=== PATIENT | male | born 1940 | race Caucasian/White ===

== ENCOUNTER 2020-03-22 15:02 | Emergency (ER) | payer MEDICARE ==
[~2020-03-22] VITALS: Ht 177.8 cm; Wt 90.9 kg
[2020-03-22] MEDS ORDERED: TAMSULOSIN HCL0.4 MG PO (15:31)
[2020-03-22] MEDS ORDERED: ASPIRIN325 MG PO (15:31)
[2020-03-22] MEDS ORDERED: METFORMIN HCL1000 MG PO (15:31)
[2020-03-22] MEDS ORDERED: SIMVASTATIN10 MG PO (15:32)
[2020-03-22 15:48] LABS: HEMATOCRIT 38.4 % (39.0-50.0); HEMOGLOBIN 13.1 g/dl (14.0-18.0); IMMATURE GRANULOCYTES 0.2 % (0.0-5.0); MEAN CELL VOLUME 88.1 fL CALC (80.0-100.0); MEAN CORPUSCULAR HGB CONC 34.1 g/dL CAL (32.0-36.0); NEUT# 2.26 thou/uL (1.82-7.42); RED BLOOD COUNT 4.36 mill/uL (4.70-6.10); RED CELL DISTRI WIDTH 12.3 % (11.5-15.5)
[2020-03-22 16:00] LABS: ALBUMIN 4.2 g/dL (3.2-5.0); ALKALINE PHOSPHATASE 71 u/l (38-126); ANION GAP 13 (6-22 (CALC)); BILIRUBIN, TOTAL 0.7 mg/dL (0.0-1.4); BUN 18 mg/dL (8-23); BUN/CREATININE RATIO 18 (12-20 (CALC)); CARBON DIOXIDE 25 mmol/l (22-30); CHLORIDE 97 mmol/l (95-108); GFR > 60 ML/MIN (>=60 (CALC)); GFR FOR AFR.AMER. > 60 ML/MIN (>=60 (CALC)); SGOT/AST 55 u/l (19-48); SODIUM 131 mmol/l (137-146); TOTAL PROTEIN 7.1 g/dL (6.3-8.2)
[2020-03-22 16:11] LABS: URINE BILIRUBIN - DIPSTICK NEGATIVE (NEGATIVE); URINE BLOOD DIPSTICK NEGATIVE (NEGATIVE); URINE COLOR YELLOW; URINE GLUCOSE - DIPSTICK NEGATIVE (NEGATIVE); URINE KETONE NEGATIVE (NEGATIVE); URINE LEUK ESTERASE NEGATIVE (NEGATIVE); URINE NITRITE - DIPSTICK NEGATIVE (Negative); URINE PH 5.5 (4.5-8.0); URINE PROTEIN - DIPSTICK NEGATIVE (NEG-TRACE); URINE SPECIFIC GRAVITY >=1.030; URINE UROBILINOGEN - DIPSTICK 0.2 E.U./dL (0.2)
[2020-03-22 16:12] LABS: MYOGLOBIN 74 ng/mL (0 - 121)
[2020-03-22] MEDS ORDERED: ZITHROMAX250 MG PO (16:44)
[2020-03-22 17:30] VITALS: BP 120/70
== END 2020-03-22 18:12 | disposition home or self-care (01) ==
LOC: ED 15:02
PROVIDERS: Emergency Medicine
DX: U07.1 COVID-19 (principal); R50.9 Fever, unspecified; R42 Dizziness and giddiness; R63.0 Anorexia; E11.9 Type 2 diabetes mellitus without complications; Z95.2 Presence of prosthetic heart valve; Z79.84 Long term (current) use of oral hypoglycemic drugs

== ENCOUNTER 2021-04-23 11:59 | Observation (INO) | payer OTHER, MEDICARE ==
[2021-04-23] VITALS (10 sets, daily range): BP systolic 105–147; BP diastolic 51–63
[~2021-04-23] VITALS: Ht 177.8 cm; Wt 79.0 kg
[~2021-04-23 11:59] MED LIST: ASPIRIN325 MG PO; HUMALOG100 UNIT/M SC; KEFLEX500 MG PO; LANTUS100 UNIT; METFORMIN HCL1000 MG PO; ROCEPHIN 1 GM1 GM IM; SIMVASTATIN10 MG PO; TAMSULOSIN HCL0.4 MG PO; ZITHROMAX250 MG PO
--- NOTE | 2021-04-23 12:03 | NUR ---
pt to room w/steady gait uses cane. refused wc.
[2021-04-23] MEDS ORDERED: COZAAR25 MG PO (12:16)
[2021-04-23 12:48] LABS: HEMATOCRIT 24.3 % (39.0-50.0); HEMOGLOBIN 7.6 g/dl (14.0-18.0); IMMATURE GRANULOCYTES 0.1 % (0.0-5.0); MEAN CELL VOLUME 91.7 fL CALC (80.0-100.0); MEAN CORPUSCULAR HGB 28.7 pG CALC (26.0-32.0); MEAN CORPUSCULAR HGB CONC 31.3 g/dL CAL (32.0-36.0); NEUT# 5.2 thou/uL (1.82-7.42); RED BLOOD COUNT 2.65 mill/uL (4.70-6.10); RED CELL DISTRI WIDTH 15.6 % (11.5-15.5)
[2021-04-23 12:54] LABS: ALBUMIN 3.5 g/dL (3.2-5.0); ALKALINE PHOSPHATASE 87 u/l (38-126); ANION GAP 13 (6-22 (CALC)); BILIRUBIN, TOTAL 0.5 mg/dL (0.0-1.4); BUN 20 mg/dL (8-23); BUN/CREATININE RATIO 23 (12-20 (CALC)); CARBON DIOXIDE 27 mmol/l (22-30); CHLORIDE 96 mmol/l (95-108); CREATININE 0.9 mg/dL (0.7-1.3); GFR > 60 ML/MIN (>=60 (CALC)); GFR FOR AFR.AMER. > 60 ML/MIN (>=60 (CALC)); LIPASE 57 u/l (23-300); POTASSIUM 4.1 mmol/l (3.5-5.1); SGOT/AST 24 u/l (19-48); SODIUM 132 mmol/l (137-146); TOTAL PROTEIN 7.6 g/dL (6.3-8.2)
[2021-04-23 12:55] LABS: ACT PARTIAL THROMBO TIME 27.4 SECONDS (20.0-32.5); INTERNATIONAL NORMALIZED RATIO 1.1 RATIO (0.7-1.3); PROTHROMBIN TIME 11.1 SECONDS (9.0-12.5)
[2021-04-23 13:55] LABS: URINE BILIRUBIN - DIPSTICK NEGATIVE (NEGATIVE); URINE BLOOD DIPSTICK NEGATIVE (NEGATIVE); URINE COLOR YELLOW; URINE GLUCOSE - DIPSTICK 100 mg/dL (NEGATIVE); URINE KETONE NEGATIVE (NEGATIVE); URINE LEUK ESTERASE NEGATIVE (NEGATIVE); URINE PROTEIN - DIPSTICK NEGATIVE (NEG-TRACE); URINE UROBILINOGEN - DIPSTICK 0.2 E.U./dL (0.2)
[2021-04-23 13:56] LABS: URINE NITRITE - DIPSTICK NEGATIVE (Negative)
[2021-04-23] MEDS ORDERED: METOPROL TAR25 MG PO (14:26)
--- NOTE | 2021-04-23 15:30 | NUR ---
Patient one hour into blood transfusion. No reactions noted. He has received blood in the past.
--- NOTE | 2021-04-23 15:33 | NUR ---
REPORT RECIEVED FROM ROGELIO HOOD
--- NOTE | 2021-04-23 15:37 | NUR ---
Report given to Korin. Patient transfer to [facility].
--- NOTE | 2021-04-23 16:30 | NUR ---
ORIENTATED PT TO ROOM. STATES NO PAIN AT THIS TIME. CALL LIGHT WITHIN REACH. BLOOD TRANSFUSION INFUSING WITH NO COMPLICATION. CALL LIGHT WITHIN REACH
--- NOTE | 2021-04-23 16:30 | NUR ---
PT ARRIVED VIA STRECTHER WITH RN FROM ER. PT ABLE TO AMBULATE MINMIAL ASSIST. CALL LIGHT WITHIN REACH. BLOOD TRANSFUSING UPON ARRIVAL.
--- NOTE | 2021-04-23 17:34 | NUR ---
PT STARTED UNIT #2 OF BLOOD AT THIS TIME.
--- NOTE | 2021-04-23 17:49 | NUR ---
PT FIRST 15 MIN VITALS: TEMP: 98.0, BP: 109/51, HR: 82, SPO2: 100. PT SHOWED NO REACTIONS. AND STATES NO PAIN AT THIS TIME.
--- NOTE | 2021-04-23 20:09 | NUR ---
1900-Report received from dayshift nurse via sbar format. Found patient alert and oriented, getting 2nd unit of blood trnasfusion, infusing to PE[place] Midline, single lumen, no s/s of infiltration noted, patient denies any s/s of adverse reactions, educated about adverse reactions to blood products, voices understanding, encouraged to call if needed, reinforced safety measures, call shaw at reach. will follow up closely.
--- NOTE | 2021-04-23 21:42 | NUR ---
Patient is resting in bed, comfortable denies pain, reports x2 bm's loose, abx infusing per emar, educated about call shaw systme and safety measures, voices understanding, call shaw at reach, will follow up closely.
[2021-04-24] VITALS: BP 117/64
--- NOTE | 2021-04-24 00:01 | NUR ---
RESTING IN BED WITH EYES CLOSED, AROUSES TO STIMULI, NO PAIN OR NEEDS REPORTED, CALL KAHN AT REACH.
[2021-04-24 04:00] VITALS: BP 107/58
--- NOTE | 2021-04-24 04:24 | NUR ---
RESTING IN BED AWAKE, ASSISTED TO BRP, STEADY GAIT NOTED, BACK TO BED SAFELY, WILL FOLLOW UP CLOSELY, SAFETY MEASURES IN PLACE. CALL KAHN AT REACH.
[2021-04-24 04:56] LABS: HEMATOCRIT 27.7 % (39.0-50.0); HEMOGLOBIN 9.2 g/dl (14.0-18.0); MEAN CELL VOLUME 89.1 fL CALC (80.0-100.0); MEAN CORPUSCULAR HGB 29.6 pG CALC (26.0-32.0); MEAN CORPUSCULAR HGB CONC 33.2 g/dL CAL (32.0-36.0); RED BLOOD COUNT 3.11 mill/uL (4.70-6.10)
[2021-04-24 05:09] LABS: ANION GAP 12 (6-22 (CALC)); BUN 20 mg/dL (8-23); BUN/CREATININE RATIO 26 (12-20 (CALC)); CARBON DIOXIDE 24 mmol/l (22-30); CHLORIDE 100 mmol/l (95-108); CREATININE 0.8 mg/dL (0.7-1.3); GFR > 60 ML/MIN (>=60 (CALC)); GFR FOR AFR.AMER. > 60 ML/MIN (>=60 (CALC)); MAGNESIUM 1.5 mg/dL (1.6-2.3); SODIUM 132 mmol/l (137-146)
--- NOTE | 2021-04-24 06:30 | NUR ---
Patient is resting in bed with eyes closed, no pain or needs reported at this time, call shaw at reach.
[2021-04-24 07:34] VITALS: BP 125/66
--- NOTE | 2021-04-24 08:00 | NUR ---
ASSESSMENT AND VITALS ALLOWED AT THIS TIME. STATES NO PAIN AT THIS TIME. 2 UNITS OF BLOOD WAS GIVEN 04/23/21. PT IS A&O X3. LUNG SOUNDS ARE DIMINISHED UPPER/LOWER LOBES ANTERIOR AND POSTERIOR. HEART SOUNDS ARE REGULAR. TELE MONITOR IN PLACE. CONTINOUS MONITORING BY ED. PT HAS MIDLINE IN PEPE. FLUSHED WITH NO RESISTANCE. FALL/SAFETY PRECAUTIONS WITHIN REACH. CALL LIGHT WITHIN REACH
[2021-04-24 12:06] VITALS: BP 105/57
--- NOTE | 2021-04-24 12:15 | NUR ---
Discharge instructions given. Patient verbalizes understanding of same. Discharged in stable condition via Ambulatory to Home with ROGELIO MATHEW (CALL CENTRE SUPERVISOR) staff. All belongings sent with pt. MIDLINE REMAINED FOR THE REST OF PT ANTIBIOTIC THERAPY.
== END 2021-04-24 12:15 | disposition home health service (06) | DRG 812 ==
LOC: ED 11:59 → ED-I 14:03 → ED 14:12 → MS2 14:14
PROVIDERS: ADMIT Hospitalist; ATTEND Hospitalist
PROC: 30233N1 Transfusion of Nonautologous Red Blood Cells into Peripheral Vein, Percutaneous Approach (ICD-10-PCS; principal; 2021-04-23)
PROC: 30233N1 Transfusion of Nonautologous Red Blood Cells into Peripheral Vein, Percutaneous Approach (ICD-10-PCS; 2021-04-23)
DX: D64.9 Anemia, unspecified (principal); I10 Essential (primary) hypertension; E11.9 Type 2 diabetes mellitus without complications; C61 Malignant neoplasm of prostate; E78.00 Pure hypercholesterolemia, unspecified; Z95.2 Presence of prosthetic heart valve; Z79.84 Long term (current) use of oral hypoglycemic drugs; Z79.4 Long term (current) use of insulin; Z92.3 Personal history of irradiation; Z20.822 Contact with and (suspected) exposure to COVID-19
CPT/HCPCS: G0378; P9016

== ENCOUNTER 2021-05-08 09:39 | Emergency (ER) | payer OTHER, MEDICARE ==
[~2021-05-08] VITALS: Ht 177.8 cm; Wt 82.0 kg
[~2021-05-08 09:39] MED LIST changes: +COZAAR25 MG PO; +METOPROL TAR25 MG PO
[2021-05-08 10:44] LABS: HEMATOCRIT 29.3 % (39.0-50.0); HEMOGLOBIN 9.4 g/dl (14.0-18.0); IMMATURE GRANULOCYTES 0.2 % (0.0-5.0); MEAN CELL VOLUME 91.3 fL CALC (80.0-100.0); MEAN CORPUSCULAR HGB 29.3 pG CALC (26.0-32.0); MEAN CORPUSCULAR HGB CONC 32.1 g/dL CAL (32.0-36.0); NEUT# 6.42 thou/uL (1.82-7.42); RED BLOOD COUNT 3.21 mill/uL (4.70-6.10); RED CELL DISTRI WIDTH 15.3 % (11.5-15.5)
[2021-05-08 10:45] LABS: URINE BILIRUBIN - DIPSTICK NEGATIVE (NEGATIVE); URINE BLOOD DIPSTICK NEGATIVE (NEGATIVE); URINE COLOR YELLOW; URINE GLUCOSE - DIPSTICK NEGATIVE (NEGATIVE); URINE KETONE NEGATIVE (NEGATIVE); URINE LEUK ESTERASE NEGATIVE (NEGATIVE); URINE PH 5.5 (4.5-8.0); URINE PROTEIN - DIPSTICK NEGATIVE (NEG-TRACE); URINE UROBILINOGEN - DIPSTICK 0.2 E.U./dL (0.2)
[2021-05-08 10:55] LABS: GFR > 60 ML/MIN (>=60 (CALC)); GFR FOR AFR.AMER. > 60 ML/MIN (>=60 (CALC)); URINE NITRITE - DIPSTICK NEGATIVE (Negative)
[2021-05-08 11:01] LABS: ALBUMIN 3.7 g/dL (3.2-5.0); ALKALINE PHOSPHATASE 105 u/l (38-126); ANION GAP 12 (6-22 (CALC)); BILIRUBIN, TOTAL 0.4 mg/dL (0.0-1.4); BUN 18 mg/dL (8-23); BUN/CREATININE RATIO 22 (12-20 (CALC)); CARBON DIOXIDE 28 mmol/l (22-30); CHLORIDE 98 mmol/l (95-108); CREATININE 0.8 mg/dL (0.7-1.3); GFR > 60 ML/MIN (>=60 (CALC)); GFR FOR AFR.AMER. > 60 ML/MIN (>=60 (CALC)); POTASSIUM 4.3 mmol/l (3.5-5.1); SGOT/AST 28 u/l (19-48); SODIUM 134 mmol/l (137-146); TOTAL PROTEIN 7.9 g/dL (6.3-8.2)
[2021-05-08 14:56] VITALS: BP 112/49
== END 2021-05-08 14:57 | disposition short-term general hospital (02) | DRG 282 ==
LOC: ED 09:39
PROVIDERS: Family Medicine
DX: I21.4 Non-ST elevation (NSTEMI) myocardial infarction (principal); I10 Essential (primary) hypertension; E11.9 Type 2 diabetes mellitus without complications; F41.9 Anxiety disorder, unspecified; Z95.5 Presence of coronary angioplasty implant and graft; Z95.2 Presence of prosthetic heart valve; Z85.46 Personal history of malignant neoplasm of prostate; Z79.84 Long term (current) use of oral hypoglycemic drugs; Z79.4 Long term (current) use of insulin; Z20.822 Contact with and (suspected) exposure to COVID-19
CPT/HCPCS: J1644; Q9967